=== PATIENT | female | born 1945 ===

== ENCOUNTER 2016-05-15 14:55 | Outpatient (CLI) | payer MEDICARE | END 2016-05-15 14:56 | disposition home or self-care (01) | LOC: LABHHL 14:55 → EDBD 14:55 → LABHHL 14:56 | PROVIDERS: ATTEND Plastic Surgery | DX: N64.89 Other specified disorders of breast (principal); Z85.3 Personal history of malignant neoplasm of breast | CPT/HCPCS: 88305; 88307 ==